=== PATIENT | male | born 1945 | race Caucasian/White ===

== ENCOUNTER → 2019-04-15 | Outpatient (CLI) | payer MEDICARE, OTHER ==
--- NOTE | 2019-04-15 17:03 | PCVCIMAG ---
APPROVED REPORT Study performed: 04/15/2019 13:31:07 EXAM: Comprehensive 2D, Doppler, and color-flow Echocardiogram Patient Location: Echo lab Status: routine BSA: 2.45 HR: 67 bpmBP: 132/58 mmHg Rhythm: NSR Other Information Study Quality: Adequate Technically limited study due to body habitus. Risk Factors: Cardiac Risk Factors: HTN Indications Abnormal ECG Congestive Heart Failure CAD CABG 2D Dimensions IVSd: 15.02 (7-11mm) LVDd: 44.01 mm PWd: 14.86 (7-11mm)Ascending Ao: 40.63 (22-36mm) LVDs: 31.60 (25-40mm) Left Atrium: 44.37 (27-40mm) Aortic Root: 35.77 mm LV Single Plane 4CH: 47.43 % LV Single Plane 2CH: 50.00 % Volumes Left Atrial Volume (Systole) Single Plane 4CH: 78.02 mLSingle Plane 2CH: 110.31 mL LA ESV Index: 39.00 mL/m2 Aortic Valve AoV Peak Dalton.: 2.08 m/s AO Peak Gr.: 17.30 mmHgLVOT Max P.57 mmHg LVOT Max V: 0.94 m/s Mitral Valve E/A Ratio: 0.9 MV Decel. Time: 275.07 ms MV E Max Dalton.: 0.83 m/s MV A Dalton.: 0.94 m/s IVRT: 117.65 ms Pulmonary Valve PV Peak Dalton.: 1.05 m/sPV Peak Gr.: 4.47 mmHg Pulmonary Vein P Vein S: 0.40 m/s P Vein D: 0.47 m/s P Vein S/D Ratio: 0.85 Tricuspid Valve TR Peak Dalton.: 2.66 m/s TR Peak Gr.: 28.38 mmHg Left Ventricle The left ventricle is normal size. There is normal LV segmental wall motion. Moderate concentric left ventricular hypertrophy. The overall left ventricular systolic function appears within lower limits of normal. LVEF is 50%. Grade I - abnormal relaxation pattern. Right Ventricle The right ventricle is normal size. The right ventricular systolic function is normal. Atria Left atrium is mildly dilated. Right atrium is mildly dilated. Aortic Valve The aortic valve is moderately sclerotic. No aortic regurgitation is present. There is no aortic valvular stenosis. Mitral Valve The mitral valve is normal in structure. There is no mitral valve regurgitation noted. No evidence of mitral valve stenosis. Tricuspid Valve The tricuspid valve is normal in structure. Mild tricuspid regurgitation with PAP of 35 mmHg. Pulmonic Valve The pulmonary valve is normal in structure. Mild to moderate pulmonic regurgitation. Great Vessels The aortic root is normal in size. The ascending aorta is mildly dilated to 4.1 cm. IVC is normal in size and collapses >50% with inspiration. Pericardium There is no pericardial effusion. There is no pleural effusion. <Conclusion> The left ventricle is normal size. Moderate concentric left ventricular hypertrophy. The overall left ventricular systolic function appears within lower limits of normal. LVEF is 50%. Grade I - abnormal relaxation pattern. Left atrium is mildly dilated. Right atrium is mildly dilated. The aortic valve is moderately sclerotic. There is no mitral valve regurgitation noted. Mild tricuspid regurgitation with PAP of 35 mmHg. The aortic root is normal in size. There is no pericardial effusion.
== END | disposition home or self-care (01) ==
LOC: PCVCIMAG 13:16
PROVIDERS: ATTEND Internal Medicine Cardiovascular Disease
DX: I08.8 Other rheumatic multiple valve diseases (principal); I11.0 Hypertensive heart disease with heart failure; I50.9 Heart failure, unspecified; R94.31 Abnormal electrocardiogram [ECG] [EKG]; I25.10 Atherosclerotic heart disease of native coronary artery without angina pectoris
CPT/HCPCS: 93306